=== PATIENT | male | born 1960 | race Caucasian/White ===

== ENCOUNTER 2024-07-15 17:46 | Emergency (ER) | payer OTHER ==
[2024-07-15 18:10] VITALS: TEMP 98.5
--- NOTE | 2024-07-15 18:30 | ED ---
Lower Extremity Injury HPI - General Source: patient, RN notes reviewed Mode of arrival: wheelchair Limitations: no limitations <Vi Sterling - Last Filed: 07/15/24 18:29> - General Source: patient, RN notes reviewed, old records reviewed Mode of arrival: wheelchair Limitations: no limitations - History of Present Illness MD Complaint: knee injury -: hour(s) Injury: Knee: Left Type of Injury: blunt, hyperextension Severity: severe Severity scale (1-10): 8 Context: fall Other Symptoms: loss of consciousness Associated Symptoms: snap/pop sensation, numbness Treatments Prior to Arrival: bandage, NSAIDS <Keshav Sr - Last Filed: 07/15/24 20:53> - General Chief Complaint: Extremity Injury, Lower Stated Complaint: Fall, left knee injury Time Seen by Provider: 07/15/24 18:29 - History of Present Illness Initial Comments: Quick note: 64-year-old male presented the ER with a chief complaint of left knee pain. Patient states he was working on a ladder approximately 3 to 4 feet high when he accidentally fell. He states he felt his left knee pop.. He reports chronic pain with this knee. He denies any head injury, loss of consciousness or other injuries. (Vi Sterling) This is a 64-year-old male fall on a 3 foot ladder left knee pain left knee pop (Keshav Sr) - Related Data Allergies Allergy/AdvReac Type Severity Reaction Status Date / Time ibuprofen [From Motrin] Allergy Nausea & Verified 07/15/24 18:10 Vomiting Review of Systems ROS Other: All systems not noted in ROS Statement are negative. <Vi Sterling - Last Filed: 07/15/24 18:29> ROS Other: All systems not noted in ROS Statement are negative. <Keshav Sr - Last Filed: 07/15/24 20:53> ROS Statement: Those systems with pertinent positive or pertinent negative responses have been documented in the HPI. Past Medical History Past Medical History: Hyperlipidemia Past Surgical History: No Surgical Hx Reported Smoking Status: Current every day smoker Past Alcohol Use History: None Reported Past Drug Use History: None Reported <Vi Sterling - Last Filed: 07/15/24 18:29> General Exam Limitations: no limitations <Vi Sterling - Last Filed: 07/15/24 18:29> General appearance: alert, in no apparent distress Head exam: Present: atraumatic, normocephalic, normal inspection Eye exam: Present: normal appearance, PERRL, EOMI. Absent: scleral icterus, conjunctival injection, periorbital swelling ENT exam: Present: normal exam, mucous membranes moist Neck exam: Present: normal inspection. Absent: tenderness, meningismus, lymphadenopathy Respiratory exam: Present: normal lung sounds bilaterally. Absent: respiratory distress, wheezes, rales, rhonchi, stridor Cardiovascular Exam: Present: regular rate, normal rhythm, normal heart sounds. Absent: systolic murmur, diastolic murmur, rubs, gallop, clicks GI/Abdominal exam: Present: soft, normal bowel sounds. Absent: distended, te nderness, guarding, rebound, rigid Extremities exam: Present: normal inspection, full ROM, normal capillary refill. Absent: tenderness, pedal edema, joint swelling, calf tenderness Back exam: Present: normal inspection Neurological exam: Present: alert, oriented X3, CN II-XII intact Psychiatric exam: Present: normal affect, normal mood Skin exam: Present: warm, dry, intact, normal color. Absent: rash <Keshav Sr - Last Filed: 07/15/24 20:53> - General Exam Comments Initial Comments: Visual Physical Exam Vital signs reviewed General: Well-appearing, nontoxic, no acute distress. Head: Normocephalic, atraumatic Eyes: PERRLA, EOMI ENT: Airway patent Chest: Nonlabored breathing Skin: No visual rash, normal skin tone Neuro: Alert and oriented 3 Musculoskeletal: No gross abnormalities (Vi Sterling) Course <Keshav Sr - Last Filed: 07/15/24 20:53> Vital Signs 07/15/24 18:07 Temperature 98.5 F Pulse Rate 83 Respiratory 20 Rate Blood Pressure 131/79 O2 Sat by Pulse 94 L Oximetry - Reevaluation(s) Reevaluation #1: 07/15/24 20:52 Medical records reviewed (Keshav Sr) Reevaluation #2: 07/15/24 20:52 Patient symptoms unchanged (Keshav Sr) Reevaluation #3: 07/15/24 20:53 Patient informed of results and questions answered (Rishabh Srophkvng Sunshine) Reevaluation #4: 07/15/24 20:53 Was pt. sent in by a medical professional or institution ([facility], [employer], urgent care, hospital, or long term...) When possible be specific @ -no Did you speak to anyone other than the patient for history (EMS, parent, family, police, friend...)? What history was obtained from this source @ -no Did you review nursing and triage notes (agree or disagree)? Why? @ -agree Are old charts reviewed (outside hosp., previous admission, EMS record, old EKG, old radiological studies, urgent care reports/EKG's, long term records)? Report findings @ -yes Differential Diagnosis (chest pain, altered mental status, abdominal pain women, abdominal pain men, vaginal bleeding, weakness, fever, dyspnea, syncope, headache, dizziness, GI bleed, back pain, seizure, CVA, palpatations, mental health, musculoskeletal)? @ -prior EKG interpreted by me (3pts min.). @ -yes X-rays interpreted by me (1pt min.). @ -yes negative for acute disease CT interpreted by me (1pt min.). @ -no U/S interpreted by me (1pt. min.). @ -no What testing was considered but not performed or refused? (CT, X-rays, U/S, labs)? Why? @ -none What meds were considered but not given or refused? Why? @ -none Did you discuss the management of the patient with other professionals (professionals i.e. [facility], [employer], lab, RT, psych nurse, social work specialist, brand strategy manager, teacher, branch lending officer, case managers)? Give summary @ -no Was smoking cessation discussed for >3mins.? @ -no Was critical care preformed (if so, how long)? @ -no Were there social determinants of health that impacted care today? How? (Homelessness, low income, unemployed, alcoholism, drug addiction, transportation, low edu. Level, literacy, decrease access to med. care, halfway, rehab)? @ -none Was there de-escalation of care discussed even if they declined (Discuss DNR or withdrawal of care, Hospice)? DNR status @ -no What co-morbidities impacted this encounter? (DM, HTN, Smoking, COPD, CAD, Cancer, CVA, ARF, Chemo, Hep., AIDS, mental health diagnosis, sleep apnea, morbid obesity)? @ -none Was patient admitted / discharged? Hospital course, mention meds given and route, prescriptions, significant lab abnormalities, going to OR and other pertinent info. @ - Undiagnosed new problem with uncertain prognosis? @ -no Drug Therapy requiring intensive monitoring for toxicity (Heparin, Nitro, Insulin, Cardizem)? @ -no Were any procedures done? @ -no Diagnosis/symptom? @ - Acute, or Chronic, or Acute on Chronic? @ -Acute Uncomplicated (without systemic symptoms) or Complicated (systemic symptoms)? @ -Complicated Side effects of treatment? @ -no Exacerbation, Progression, or Severe Exacerbation? @ -exacerbation Poses a threat to life or bodily function? How? (Chest pain, [place], OR, pneumonia, PE, COPD, DKA, ARF, appy, cholecystitis, CVA, Diverticulitis, Homicidal, Suicidal, threat to staff... and all critical care pts) @ -yes (Keshav Sr) Medical Decision Making <Vi Sterling - Last Filed: 07/15/24 18:29> - Radiology Data Radiology results: report reviewed (X-ray left knee CT scan left knee positive fracture), image reviewed <Keshav Sr - Last Filed: 07/15/24 20:53> - Medical Decision Making I performed the quick note portion of this chart. Electronically signed by Vi Sterling PA-C (Vi Sterling) 64 male to the ER for evaluation patient does have left tibial plateau fracture and fibular head fracture and can be discharged home (Keshav Sr) Disposition <Vi Sterling - Last Filed: 07/15/24 18:29> Is patient prescribed a controlled substance at d/c from ED?: No Time of Disposition: 20:45 <Keshav Sr - Last Filed: 07/15/24 20:53> Clinical Impression: Fracture of tibial plateau, Left patella fracture, Closed fracture fibula, head Disposition: HOME SELF-CARE Condition: Good Instructions (If sedation given, give patient instructions): Knee Pain (ED) Referrals: None,Stated [Primary Care Provider] - 1-2 days
--- NOTE | 2024-07-15 18:51 | XR ---
EXAMINATION TYPE: XR tibia fibula LT, XR knee complete LT DATE OF EXAM: 07/15/2024 6:39 PM CLINICAL INDICATION: Male, 64 years old with history of pain fall.; COMPARISON: None TECHNIQUE: XR tibia fibula LT, XR knee complete LT; examined in AP and lateral projections. The knee was evaluated in frontal lateral and oblique views. FINDINGS: Severe degeneration changes of the knee with joint space narrowing osteophyte formation. Proximal fibula fracture with mild displacement up to 3 mm. One view of the tibial plateau does demonstrate lucencies possibly representing minimally displaced f racture of the tibial plateau. Small joint effusion present. IMPRESSION: 1. Proximal fibular fracture with mild displacement. 2. Questionable fracture through the lateral tibial plateau. Further evaluation with CT recommended. 3. Severe degeneration changes of the knee. [facility], , 07/15/2024 6:49 PM
[2024-07-15] MEDS: HYDROmorphone 1 MG/ML 1 ML SYRINGE IM STA (19:47)
--- NOTE | 2024-07-15 20:28 | CT ---
EXAMINATION TYPE: CT knee LT wo con CT DLP: Not reported mGycm, Automated exposure control for dose reduction was used. DATE OF EXAM: 07/15/2024 8:14 PM COMPARISON: . Extremity radiograph same day. CLINICAL INDICATION: Male, 64 years old with history of pain; PHH, Fell off ladder, left knee pain. TECHNIQUE: Axial images were obtained of the CT knee LT wo con, Additional coronal and sagittal refor matted images and soft tissue and bone window were obtained for review. 3-D reconstruction was create d on a separate workstation. Contrast used: mL of , (None if empty) Oral contrast used: (None if empty) FINDINGS: Fracture confirmed of the lateral and medial tibial plateau with intra-articular extension and mild displacement series 201 image 63.. Additional fracture of the fibular head noted. The femur and patella appear intact. There is severe degeneration with joint space narrowing osteophyte formati on. There is a joint effusion with fat blood layering. Tortuous vessels are seen within the subcutane ous tissues. IMPRESSION: 1. Acute tibial plateau fracture with minimal displacement. 2. Acute fibular head fracture with minimal displacement. 3. Knee joint effusion possibly lipohemarthrosis. 4. End-stage osteoarthrosis changes of the knee. [facility], , 07/15/2024 8:26 PM
[2024-07-15] MEDS: traMADol 50 MG TAB PO STA (21:03)
[2024-07-15] MEDS: IBUPROFEN 600 MG STARTER PACK 4 TAB BTL PO STA (21:04)
[2024-07-15] MEDS: traMADol 50 MG STARTER PACK 3 TAB BTL PO STA (21:05)
[2024-07-15 21:10] VITALS: BP 149/94; PULSE 90; RESP 18
== END 2024-07-15 21:17 | disposition home or self-care (01) ==
LOC: EC 17:46
CPT/HCPCS: 96372; 99284